=== PATIENT | female | born 1975 | race Caucasian/White ===

== ENCOUNTER 2017-04-04 06:09 | Day surgery (SDC) | payer OTHER ==
[2017-03-29 09:50] VITALS: BMI 24.6
[2017-04-04] MEDS ORDERED: Lidocaine 2% Inj (20ml) ONE (07:53)
[2017-04-04] MEDS ORDERED: Propofol 10 mg/ml Inj (20 ML) ONE ×2 (07:53→08:25)
[2017-04-04] MEDS ORDERED: Sodium Chloride 0.9% 1,000 ML IV SCH (09:15)
[2017-04-04 09:26] VITALS: O2SAT 99
[2017-04-04 10:12] VITALS: BP 105/71; PULSE 61; RESP 16; TEMP 97.6
== END 2017-04-04 10:32 | disposition home or self-care (01) ==
LOC: ENDO 06:09
PROVIDERS: ATTEND Internal Medicine
DX: D12.3 Benign neoplasm of transverse colon (principal); D12.5 Benign neoplasm of sigmoid colon; K38.8 Other specified diseases of appendix; K59.00 Constipation, unspecified
CPT/HCPCS: 45380; 45381; 45385; 88305; J2704; J7040 ×2

== ENCOUNTER 2017-05-02 14:36 | Emergency (ER) | payer SELFPAY ==
[2017-05-02 14:44] VITALS: BMI 29.2
[2017-05-02] MEDS ORDERED: Iodixanol 320 MG/ML 100 ML BOTTLE IV ONE (15:16)
[2017-05-02 15:19] VITALS: RESP 18; TEMP 98.3; O2SAT 98
--- NOTE | 2017-05-02 15:22 | ED PDOC ---
Arrival/HPI - General Time Seen by Provider: 05/02/17 14:41 Historian: Patient - History of Present Illness Narrative History of Present Illness (Text): 05/02/17 14:45 Triz Stella Gallardo is a 42 year old female, whose past medical history includes hysterectomy, left oophorectomy, and an appendectomy, sent to emergency department by Dr. Moses after complaining of chest pain and shortness of breath for several days. Patient states that is experiencing sharp right-sided chest pain radiating to right side of back for four days with associated shortness of breath and RUQ post postprandial pain for 1 week. Patient notes that she takes Miralax daily for constipation. Patient denies any nausea, vomiting, coughs or any other complaint at this time. PMD: Dr. Moses Time/Duration: < week Symptom Onset: Gradual Symptom Course: Unchanged Severity Level: Mild Activities at Onset: Light Context: Home Past Medical History - Provider Review Nursing Documentation Reviewed: Yes - Infectious Disease Hx of Infectious Diseases: None - Cardiac Hx Pacemaker: No - Pulmonary Hx Respiratory Disorders: No - Neurological Hx Paralysis: No - HEENT Hx HEENT Disorder: No - Renal Hx Renal Disorder: No - Endocrine/Metabolic Hx Endocrine Disorders: No - Hematological/Oncological Hx Blood Transfusions: No Hx Blood Transfusion Reaction: No - Integumentary Hx Dermatological Disorder: No - Musculoskeletal/Rheumatological Hx Musculoskeletal Disorders: No - Gastrointestinal Hx Gastrointestinal Disorders: No - Genitourinary/Gynecological Hx Genitourinary Disorders: No - Psychiatric Hx Emotional Abuse: No Hx Physical Abuse: No Hx Substance Use: No - Surgical History Other/Comment: surgery r/t kidneys, unspecified, "they had to make it wider, a long time ago in [place]" - Anesthesia Hx Anesthesia Reactions: No Hx Malignant Hyperthermia: No - Suicidal Assessment Feels Threatened In Home Enviroment: No Family/Social History - Physician Review Nursing Documentation Reviewed: Yes Family/Social History: No Known Family HX Smoking Status: Never Smoked Hx Alcohol Use: No Hx Substance Use: No Allergies/Home Meds Allergies/Adverse Reactions: Allergies No Known Allergies Allergy (Verified 05/02/17 15:14) Home Medications: Home Meds Medication Instructions Recorded Confirmed Ergocalciferol (Vitamin D2) 50,000 unit PO Q7D 03/29/17 05/02/17 [Vitamin D2] Ibuprofen [Ibuprofen Ib] 2 tab PO Q8H 04/04/17 05/02/17 Polyethylene Glycol 3350 [Miralax] 17 gm PO DAILY 05/02/17 05/02/17 Review of Systems - Physician Review All systems were reviewed & negative as marked: Yes - Review of Systems Constitutional: absent: Fevers, Night Sweats Eyes: absent: Vision Changes ENT: absent: Hearing Changes Respiratory: SOB. absent: Cough Cardiovascular: Chest Pain Gastrointestinal: absent: Nausea, Vomiting Genitourinary Female: absent: Dysuria Musculoskeletal: Back Pain Skin: absent: Rash Neurological: absent: Headache Endocrine: absent: Diaphoresis Hemo/Lymphatic: absent: Adenopathy Psychiatric: absent: Anxiety Physical Exam Vital Signs Reviewed: Yes Vital Signs Temp Pulse Resp BP Pulse Ox 05/02/17 17:24 69 18 130/68 98 05/02/17 15:03 98.3 F 75 18 132/71 98 Temperature: Afebrile Blood Pressure: Normal Pulse: Regular Respiratory Rate: Normal Appearance: Positive for: Well-Appearing, Non-Toxic, Comfortable Pain Distress: None Mental Status: Positive for: Alert and Oriented X 3 - Systems Exam Head: Present: Atraumatic, Normocephalic Pupils: Present: PERRL Conjunctiva: Present: Normal Mouth: Present: Moist Mucous Membranes Pharnyx: Present: Normal. No: ERYTHEMA, EXUDATE Neck: Present: Normal Range of Motion Respiratory/Chest: Present: Clear to Auscultation, Good Air Exchange. No: Respiratory Distress, Accessory Muscle Use Cardiovascular: Present: Regular Rate and Rhythm, Normal S1, S2. No: Murmurs Abdomen: Present: Normal Bowel Sounds. No: Tenderness, Distention, Peritoneal Signs Back: Present: Normal Inspection Upper Extremity: Present: Normal Inspection. No: Cyanosis, Edema Lower Extremity: Present: Normal Inspection. No: Edema Neurological: Present: GCS=15, CN II-XII Intact, Speech Normal Skin: Present: Warm, Dry, Normal Color. No: Rashes Psychiatric: Present: Alert, Oriented x 3, Normal Insight, Normal Concentration Medical Decision Making ED Course and Treatment: 05/02/17 14:41 Impression: 42 year old female sent in by Dr. Moses for chest pain and shortness of breath. Patient is also complaining of sharp right-sided chest pain radiating to right side of back for four days with associated shortness of breath and RUQ post postprandial pain for 1 week. Differential Diagnosis included but are not limited to: PE vs cholecystitis vs PUD/gastritispat Plan: -- EKG -- Angio chest CT -- Abdominal Ultrasound -- Urinalysis -- Labs -- Reassess and disposition Prior Visits: Notes and results from previous visits were reviewed. Patient last seen in the ED on 05/22/15 for LLQ pain for 2-3 days. Patient was discharged home. Progress Notes: EKG: Ordered, reviewed, and independently interpreted the EKG. Rate : 63 BPM Rhythm : NSR Interpretation : No ST-segment elevations or depressions, no T-wave inversions, normal intervals. 05/02/17 20:03 CT Abdomen and Pelvis With Intravenous Contrast: Dictated and Authenticated by: Cleo Navarro MD FINDINGS: Lower thorax: No acute findings. ABDOMEN: Liver: 2.2 cm solid lesion with peripheral enhancement noted in the liver, ? hemangioma however incompletely evaluated. Gallbladder and bile ducts: Unremarkable. No calcified stones. No ductal dilation. Pancreas: Pancreas evaluation is limited. No ductal dilation. Spleen: Unremarkable. No splenomegaly. Adrenals: Unremarkable. No mass. Kidneys and ureters: The left renal pelvis is slightly dilated and there is large extrarenal pelvis on the left The right renal pelvis is slightly prominent. Stomach and bowel: Bowel evaluation is limited due to lack of distention. No mucosal thickening. Appendix: No findings to suggest acute appendicitis. PELVIS: Bladder: Unremarkable. No mass. Reproductive: Unremarkable as visualized. ABDOMEN and PELVIS: Intraperitoneal space: Unremarkable. No free air. No significant fluid collection. Bones/joints: No acute fracture. No dislocation. Soft tissues: Unremarkable. Vasculature: Unremarkable. No abdominal aortic aneurysm. Lymph nodes: Unremarkable. No enlarged lymph nodes. IMPRESSION: 2.2 cm solid lesion with peripheral enhancement noted in the liver, ? hemangioma however incompletely evaluated. 05/02/17 20:04 CT Angiography Chest With Intravenous Contrast: Dictated and Authenticated by: Cleo Navarro MD FINDINGS: Pulmonary arteries: Unremarkable. No pulmonary embolism. Aorta: No acute findings. No thoracic aortic aneurysm. Lungs: 5 mm ill-defined nodule is noted in the right upper lobe . Three-month followup exams advised. Pleural space: Unremarkable. No significant effusion. No pneumothorax. Heart: Unremarkable. No cardiomegaly. No significant pericardial effusion. No evidence of RV dysfunction. Bones/joints: No acute fracture. No dislocation. Soft tissues: Unremarkable. Lymph nodes: Unremarkable. No enlarged lymph nodes. IMPRESSION: 5 mm ill-defined nodule is noted in the right upper lobe . Three-month followup exams advised. Thank you for allowing us to participate in the care of your patient. 05/02/17 20:08 Patient with noted results. Discussed the results with [facility] fellow of Dr. Moses's - patient and Dr. moses are already aware of liver lesion, which is a cyst. Patient also made aware of hydronephrosis and lung nodule which needs repeat CT in 3 months. Toradol helped right side pain - will d/c - she will continue ibuprofen. - Lab Interpretations Lab Results: 05/02/17 16:40 05/02/17 16:40 Lab Results 05/02/17 16:55: Urine Color Light yellow, Urine Appearance Clear, Urine pH 7.0, Ur Specific [place] 1.015, Urine Protein Negative, Urine Glucose (UA) Negative, Urine Ketones Negative, Urine Blood Trace-intact H, Urine Nitrate Negative, Urine Bilirubin Negative, Urine Urobilinogen 0.2, Ur Leukocyte Esterase Negative , Urine RBC 0 - 2, Urine WBC 0 - 2, Ur Epithelial Cells 0 - 2, Urine Bacteria Trace 05/02/17 16:40: PT 10.8, INR 1.00, APTT 25.0 05/02/17 16:40: Sodium 140, Potassium 3.9, Chloride 106, Carbon Dioxide 25, Anion Gap 13, BUN 19, Creatinine 0.5, Est GFR ( Amer) > 60, Est GFR (Non- Af Amer) > 60, Random Glucose 88, Calcium 9.3, Magnesium 1.8, Total Bilirubin 0.7, Direct Bilirubin 0.3, AST 23, ALT 18, Alkaline Phosphatase 45, Lactate Dehydrogenase 382, Total Creatine Kinase 74, Troponin I < 0.01, NT-Pro-B Natriuret Pep 76.3, Total Protein 7.6, Albumin 4.4, Globulin 3.2, Albumin/ Globulin Ratio 1.4, Lipase 105 05/02/17 16:40: WBC 9.1 D, RBC 4.80, Hgb 13.6, Hct 40.4, MCV 84.2, MCH 28.3, MCHC 33.7, RDW 13.1, Plt Count 245, MPV 9.9, Gran % 54.9, Lymph % (Auto) 38.6 H , [place] % (Auto) 5.4, Eos % (Auto) 0.9 L, Baso % (Auto) 0.2, Gran # 4.98, Lymph # 3.5 H, [place] # 0.5, Eos # 0.1, Baso # 0.02 I have reviewed the lab results: Yes - RAD Interpretation Radiology Orders: 05/02/17 14:49 ANGIO CHEST PE PROTOCOL [CT] Stat 05/02/17 14:51 ABDOMEN COMPLETE [US] Stat 05/02/17 17:44 ABD & PELVIS IV CONTRAST ONLY [CT] Stat - Medication Orders Current Medication Orders: Discontinued Medications Famotidine (Pepcid) 20 mg IVP STAT STA Stop: 05/02/17 19:26 Iodixanol (Visipaque 320 Mg/Ml 100 Ml) Confirm Administered Dose 100 ml IV .STK- MED ONE Stop: 05/02/17 15:17 Ketorolac Tromethamine (Toradol) 30 mg IVP STAT STA Stop: 05/02/17 18:02 Last Admin: 05/02/17 18:50 Dose: 30 mg - Scribe Statement The provider has reviewed the documentation as recorded by the Ravi Card Provider Scribe Attestation: All medical record entries made by the Demianibe were at my direction and personally dictated by me. I have reviewed the chart and agree that the record accurately reflects my personal performance of the history, physical exam, medical decision making, and the department course for this patient. I have also personally directed, reviewed, and agree with the discharge instructions and disposition. Disposition/Present on Arrival - Present on Arrival Any Indicators Present on Arrival: No History of DVT/PE: No History of Uncontrolled Diabetes: No Urinary Catheter: No History Surgical Site Infection Following: None - Disposition Have Diagnosis and Disposition been Completed?: Yes Diagnosis: Atypical chest pain, Hydronephrosis, Lung nodule Disposition: HOME/ ROUTINE Disposition Time: 20:15 Patient Plan: Discharge Condition: GOOD Discharge Instructions (ExitCare): Chest Pain (ED), Pulmonary Nodules (ED) Additional Instructions: Follow up with Dr. Moses. Ibuprofen for pain. CT scan of the chest to be arranged by pcp in 3 months. Return to the emergency department if any new concerning symptoms. Referrals: Kamlesh Moses MD [Staff Provider] - Follow up with primary
[2017-05-02 16:57] LABS: BASO # 0.02 K/mm3 (0.0-2.0); BASO % 0.2 % (0.0-3.0); EOS # 0.1 (0.0-0.7); EOS % 0.9 % (1.5-5.0); GRAN # 4.98 (1.4-6.5); GRAN % 54.9 % (50.0-68.0); HEMOGLOBIN 13.6 gm/dL (12.0-16.0); LYMPH # 3.5 (1.2-3.4); LYMPH % 38.6 % (22.0-35.0); MEAN CELL VOLUME 84.2 fL (80.0-105.0); MEAN CORPUSCULAR HEMOGLOBIN 28.3 pg (25.0-35.0); MEAN CORPUSCULAR HGB CONC 33.7 g/dl (31.0-37.0); MEAN PLATELET VOLUME 9.9 fl (7.0-11.0); MONO # 0.5 (0.1-0.6); MONO % 5.4 % (1.0-6.0); PLATELET COUNT 245 10^3/uL (120.0-450.0); RED CELL DISTRIBUTION WIDTH 13.1 % (11.5-14.5); WHITE BLOOD COUNT 9.1 10^3/ul (4.5-11.0)
--- NOTE | 2017-05-02 17:05 | US ---
HISTORY: RUQ abd pain COMPARISON: None. TECHNIQUE: Sonographic evaluation of the abdomen. FINDINGS: LIVER: Measures 13.4 cm. Normal echogenicity of the liver parenchyma. Rounded echogenic solid mass in the right lobe of the liver, 1.8 x 2.0 x 2.9 cm. No biliary dilatation. GALLBLADDER: Unremarkable. No gallstones. COMMON BILE DUCT: Measures 6 mm. No stones. No dilatation. PANCREAS: Unremarkable as visualized. No mass. No ductal dilatation. RIGHT KIDNEY: Measures 10.2cm. Mild hydronephrosis. No mass or calculus. Normal cortical echogenicity. LEFT KIDNEY: Measures 10.6cm. Mild to moderate hydronephrosis. No mass or calculus. Normal cortical echogenicity. SPLEEN: Normal in size and contour. No mass. AORTA: No aneurysmal dilatation. IVC: Unremarkable. OTHER FINDINGS: None. IMPRESSION: Bilateral hydronephrosis. 2.9 cm echogenic mass in right lobe of liver. Nonspecific. Nonemergent evaluation advised with multi phase contrast-enhanced CT. No evidence of cholelithiasis or cholecystitis.
[2017-05-02 17:07] LABS: PROTHROMBIN TIME 10.8 Seconds (9.9-11.8)
[2017-05-02 17:24] VITALS: BP 130/68; PULSE 69
[2017-05-02 17:26] LABS: URINE BILIRUBIN NEGATIVE (NEGATIVE); URINE BLOOD TRACE-INTACT (NEGATIVE); URINE GLUCOSE (UA) NEGATIVE (NEGATIVE); URINE LEUKOCYTE ESTERASE NEGATIVE Leu/uL (NEGATIVE); URINE NITRATE NEGATIVE (NEGATIVE); URINE PROTEIN NEGATIVE mg/dL (<30 mg/dL); URINE UROBILINOGEN 0.2 E.U./dL (<1 E.U./dL)
[2017-05-02 17:28] LABS: URINE APPEARANCE CLEAR (CLEAR); URINE COLOR LIGHT YELLOW (YELLOW)
[2017-05-02 17:36] LABS: ALB/GLOB RATIO 1.4 (1.1-1.8); ALBUMIN 4.4 g/dL (3.0-4.8); ALT/SGPT 18 U/L (7-56); AST/SGOT 23 U/L (15-39); BILIRUBIN,DIRECT 0.3 mg/dL (0.0-0.4); BLOOD UREA NITROGEN 19 mg/dL (7-21); CALCIUM 9.3 mg/dL (8.4-10.5); GFR AFRICAN-AMERICAN > 60; GFR NON-AFRICAN AMERICAN > 60; LIPASE 105 U/L (23-300); MAGNESIUM 1.8 mg/dL (1.7-2.2)
[2017-05-02 17:45] LABS: B-TYPE NATRIURETIC PEPTIDE 76.3 pg/mL (0-450)
[2017-05-02 17:47] LABS: URINE BACTERIA TRACE (NEG); URINE EPITHELIAL CELLS 0 - 2 /hpf (0-5); URINE RBC 0 - 2 /hpf (0-2); URINE WBC 0 - 2 /hpf (0-6)
[2017-05-02 17:49] LABS: TROPONIN I < 0.01 ng/mL
--- NOTE | 2017-05-02 18:39 | CARD ---
APPROVED REPORT EKG Measurement Heart [id number] <Conclusion> Normal sinus rhythm Normal ECG
--- NOTE | 2017-05-03 08:45 | CT ---
PROCEDURE: CT Chest with contrast (Pulmonary Angiogram) HISTORY: R side chest pain - r/o PE COMPARISON: None available. TECHNIQUE: Axial computed tomography images were obtained of the chest in the pulmonary arterial phase of enhancement. Coronal and sagittal reformatted images were created and reviewed. Intravenous contrast dose: 100 cc of Visipaque Radiation dose: Total exam DLP = 240 mGy-cm. This CT exam was performed using one or more of the following dose reduction techniques: Automated exposure control, adjustment of the mA and/or kV according to patient size, and/or use of iterative reconstruction technique. FINDINGS: PULMONARY ARTERIES: Unremarkable. No pulmonary embolism. AORTA: No acute findings. No thoracic aortic aneurysm. LUNGS: There is a small 6 mm nodule in the right lung apex on image 19 series 5. The lungs are otherwise unremarkable PLEURAL SPACES: Unremarkable. No effusion or pneuomothorax. HEART: Unremarkable. No cardiomegaly. No significant pericardial effusion. LYMPH NODES: No lymphadenopathy. BONES, CHEST WALL: Unremarkable. No fracture or destructive lesion OTHER FINDINGS: The report concurs with the preliminary [facility] report IMPRESSION: Unremarkable CT pulmonary angiogram. No pulmonary embolus.
--- NOTE | 2017-05-03 08:50 | CT ---
PROCEDURE: CT Abdomen and Pelvis with contrast HISTORY: assess liver mass, hydronephrosis COMPARISON: None. TECHNIQUE: Contrast dose: 100 cc of Omni 350 Radiation dose: Total exam DLP = 245 mGy-cm. This CT exam was performed using one or more of the following dose reduction techniques: Automated exposure control, adjustment of the mA and/or kV according to patient size, and/or use of iterative reconstruction technique. FINDINGS: LOWER THORAX: Unremarkable. LIVER: There is a 2.2 cm solid hypodense lesion that shows peripheral nodular enhancement. Findings are most consistent with hemangioma. Image 32 and 33 series 2. GALLBLADDER AND BILE DUCTS: Unremarkable. PANCREAS: Unremarkable. No gross lesion or ductal dilatation. SPLEEN: Unremarkable. ADRENALS: Unremarkable. No mass. KIDNEYS AND URETERS: Unremarkable. No hydronephrosis. No solid mass. VASCULATURE: Unremarkable. No aortic aneurysm. BOWEL: Unremarkable. No obstruction. No gross mural thickening. APPENDIX: Normal appendix. PERITONEUM: Unremarkable. No free fluid. No free air. LYMPH NODES: Unremarkable. No enlarged lymph nodes. BLADDER: Unremarkable. REPRODUCTIVE: Unremarkable. BONES: No acute fracture. OTHER FINDINGS: None. IMPRESSION: Probable hepatic hemangioma. The study is otherwise unremarkable
== END 2017-05-02 20:24 | disposition home or self-care (01) ==
LOC: ED 14:36
DX: N13.30 Unspecified hydronephrosis (principal); R91.1 Solitary pulmonary nodule; R07.89 Other chest pain
CPT/HCPCS: 71275; 74177; 76700; 80053; 81001; 82248; 82550; 83615; 83690; 83735; 83880; 84484; 85025; 85610; 85730; 93005; 96374; 99283; J1885; Q9967